=== PATIENT | male | born 1960 | race Caucasian/White ===

== ENCOUNTER 2019-01-22 13:34 | Inpatient (IN) | payer OTHER ==
--- NOTE | 2019-01-22 16:27 | HP ---
CIWA Score - Admission Criteria [facility] Guidelines: Admission for Medically Managed Detox: Requires at least one of the followin. CIWA greater than 12 2. Seizures within the past 24 hours 3. Delirium tremens within the past 24 hours 4. Hallucinations within the past 24 hours 5. Acute intervention needed for co occurring medical disorder 6. Acute intervention needed for co occurring psychiatric disorder 7. Severe withdrawal that cannot be handled at a lower level of care (continued vomiting, continued diarrhea, abnormal vital signs) requiring intravenous medication and/or fluids 8. Admission ROS S - HPI Chief Complaint: here for rehab from alcohol 58 yo with h/o TX, low EF and recent CHF, hospitalized at [facility] for 10 days for chest pain and CHF exacerbation. Pt was treated for alcohol withdrawal and for CHF. Pt has f/u with cardiology for ICD placement. Pt states has been using alcohol all his life. Pt was drinking 2 pints/day of alcohol. No h/o seizures or DT's. Pt is retired. Allergies/Adverse Reactions: Allergies Allergy/AdvReac Type Severity Reaction Status Date / Time Penicillins Allergy Verified 01/22/19 15:10 Exam Limitations: No Limitations - Ebola screening Have you traveled outside of the country in the last 21 days: No Have you had contact with anyone from an Ebola affected area: No Do you have a fever: No - Review of Systems Constitutional: No Symptoms Reported Patient History - Patient Medical History Hx Asthma: No Hx Chronic Obstructive Pulmonary Disease (COPD): No Hx Cardiac Disorders: Yes (CAD CHF) Hx Hypertension: Yes Hx Seizures: No Hx Diabetes: No Hx Gastrointestinal Disorders: No Hx Genitourinary Disorders: No Hx Sexually Transmitted Disorders: No Hx Renal Disease (ESRD): No Hx Depression: No Hx Suicide Attempt: No Hx Schizophrenia: No - Patient Surgical History Past Surgical History: No - PPD History Previous Implant?: Yes Documented Results: Negative w/o proof Implanted On Prior [facility] Admission?: No - Smoking Cessation Smoking history: Former smoker Have you smoked in the past 12 months: No Aproximately how many cigarettes per day: 10 If you are a former smoker, when did you quit?: 2016 Initiated information on smoking cessation: No 'Breaking Loose' booklet given: 01/22/19 - Substance & Tx. History Hx Alcohol Use: Yes Hx Substance Use: No Substance Use Type: Alcohol - Substances abused Alcohol Substance route: Oral Frequency: Daily Amount used: 2 pt. rum Age of first use: 17 Date of last use: 01/16/19 Family Disease History - Family Disease History Family Disease History: Heart Disease: Father, Sister, CA: Mother (breast Ca) Admission Physical Exam [facility] - Vital Signs Vital Signs: Vital Signs - 24 hr 01/22/19 15:12 Temperature 98.0 F Pulse Rate 90 Respiratory 18 Rate Blood Pressure 98/65 - Physical General Appearance: Yes: Within Normal Limits HEENTM: Yes: Within Normal Limits, EOMI, Normocephalic, Normal Voice, Other ( edentulous) Respiratory: Yes: Within Normal Limits, Lungs Clear Neck: Yes: Within Normal Limits Cardiology: Yes: Other (distant heart sounds, best heard at LSB, Pulse rate RRR) Abdominal: Yes: Within Normal Limits, Protuberent Back: Yes: Within Normal Limits Musculoskeletal: Yes: Within Normal Limits Extremities: Yes: Within Normal Limits Neurological: Yes: Within Normal Limits, pheresis nurse II-XII NML intact, Normal Mood/ Affect Integumentary: Yes: Within Normal Limits Lymphatic: Yes: Within Normal Limits - Diagnostic (1) Alcohol use disorder Current Visit: Yes Status: Acute (2) CHF (congestive heart failure) Current Visit: Yes Status: Acute (3) HTN (hypertension) Current Visit: Yes Status: Acute (4) CAD (coronary artery disease) Current Visit: Yes Status: Acute (5) High cholesterol Current Visit: Yes Status: Acute Breathalyzer - Breathalyzer Breathalyzer: 0 Urine Drug Screen - Test Device Lot number: [id number] Expiration date: 09/20/20 - Control Is test valid?: Yes - Results Drug screen NEGATIVE: No Urine drug screen results: BZO-Benzodiazepines Inpatient Rehab Admission - Rehab Decision to Admit Inpatient rehab admission?: Yes - Initial Determination Are CD services needed?: No Free of communicable disease: No Not in need of hospitalization: No - Rehab Admission Criteria Previous failed treatment: Yes Poor recovery environment: Yes Comorbidities: Yes Lacks judgement: No Patient is meeting Inpatient Rehab admission criteria:: Yes (pt has alcohol use disorder, h/o CHF)
[2019-01-22] MEDS ORDERED: LOPERAMIDE HCL 2 MG CAPSULE PO PRN (16:30)
[2019-01-22] MEDS ORDERED: MAGNESIUM HYDROX 2400MG/30ML ORAL SUSPENSION 30 ML CUP PO PRN (16:30)
[2019-01-22] MEDS ORDERED: MAG HYDROX/AL HYDROX/SIMETH 30 ML UNIT-DOSE CUP PO PRN (16:30)
[2019-01-22] MEDS ORDERED: guaiFENesin 200 MG/10 ML 10 ML UNIT-DOSE CUPS PO PRN (16:30)
[2019-01-22] MEDS ORDERED: MAGNESIUM CITRATE 300 ML BOTTLE PO PRN (16:30)
[2019-01-22] MEDS ORDERED: MENTHOL/PHENOL 1 EACH UD MM PRN (16:30)
[2019-01-22] MEDS ORDERED: P-EPHED 60MG/TRIPROLIDI 2.5MG TABLET PO PRN (16:30)
[2019-01-22] MEDS ORDERED: IBUPROFEN 400 MG TABLET (FP) PO PRN (16:30)
[2019-01-22] MEDS ORDERED: hydrOXYzine PAMOATE 25 MG CAPSULE (FP) PO PRN (16:30)
[2019-01-22] MEDS ORDERED: TUBERCULIN PPD 5 TU/0.1ML VIAL ID ONE (18:28)
[2019-01-22] MEDS: ATORVASTATIN CA 80 MG TABLET (FP) PO SCH (21:37)
[2019-01-22] MEDS: APIXABAN 5 MG TABLET PO SCH (21:37)
[2019-01-22] MEDS: THIAMINE HCL 100 MG TABLET (FP) PO SCH (21:37)
[2019-01-22] MEDS ORDERED: MELATONIN 5 MG TABLETS PO PRN (22:00)
[2019-01-23 00:44] LABS: URINE APPEARANCE CLEAR; URINE BILIRUBIN NEGATIVE (NEGATIVE); URINE COLOR YELLOW; URINE GLUCOSE (UA) NEGATIVE (NEGATIVE); URINE KETONE NEGATIVE (NEGATIVE); URINE LEUK ESTERASE NEGATIVE (NEGATIVE); URINE NITRITE NEGATIVE (NEGATIVE); URINE PROTEIN NEGATIVE (NEGATIVE); URINE UROBILINOGEN 0.2 mg/dL (0.2-1.0)
[2019-01-23] MEDS: FUROSEMIDE 40 MG TABLET (FP) PO SCH (10:20)
[2019-01-23] MEDS: APIXABAN 5 MG TABLET PO SCH ×2 (10:20→21:48)
[2019-01-23] MEDS: PRENATAL VITAMINS W/ FOLIC ACID TABLET (FP) PO SCH (10:20)
[2019-01-23] MEDS: ASPIRIN 81 MG CHEWABLE TABLETS PO SCH (10:20)
[2019-01-23] MEDS: LISINOPRIL 5 MG TABLET (FP) PO SCH (10:20)
[2019-01-23 10:24] LABS: HEMATOCRIT 39.3 % (35.4-49); HEMOGLOBIN 12.6 GM/dL (11.7-16.9); MCH 29.4 pg (25.7-33.7); MCHC 32.1 g/dl (32.0-35.9); MEAN CELL VOLUME 91.8 fl (80-96); MEAN PLT VOLUME 9.5 fl (7.5-11.1); PLATELET COUNT 204 K/MM3 (134-434); RBC 4.28 M/mm3 (4.00-5.60); WHITE BLOOD COUNT 4.4 K/mm3 (4.0-10.0)
[2019-01-23 10:44] LABS: ALBUMIN 3.8 g/dl (3.4-5.0); ALK PHOS 115 U/L (45-117); BILIRUBIN,TOTAL 0.2 mg/dL (0.2-1); BLOOD UREA NITROGEN 19 mg/dL (7-18); CHLORIDE 105 mmol/L (98-107); CO2 27 mmol/L (21-32); GLUCOSE,RANDOM 122 mg/dL (74-106); POTASSIUM 4.2 mmol/L (3.5-5.1); SGOT/AST 23 U/L (15-37); SGPT/ALT 42 U/L (13-61); SODIUM 141 mmol/L (136-145); TOT PROT 6.9 g/dl (6.4-8.2)
[2019-01-23 10:46] LABS: ANION GAP 8 MMOL/L (8-16)
[2019-01-23] MEDS: metoPROLOL SUCCINATE 25 MG TAB.SR.24H (FP) PO SCH (10:51)
--- NOTE | 2019-01-23 11:50 | EKG ---
Test Reason : Blood Pressure : / mmHG Vent. Rate : 083 BPM Atrial Rate : 083 BPM P-R Int : 178 ms QRS Dur : 104 ms QT Int : 410 ms P-R-T Axes : 048 -14 050 degrees QTc Int : 481 ms NORMAL SINUS RHYTHM CANNOT RULE OUT INFERIOR INFARCT , AGE UNDETERMINED ABNORMAL ECG NO PREVIOUS ECGS AVAILABLE Confirmed by CLOVER KENNEDY MD ([id number]) on 01/23/2019 11:49:51 AM Referred By: Confirmed By:CLOVER KENNEDY MD
[2019-01-23] MEDS: THIAMINE HCL 100 MG TABLET (FP) PO SCH (21:48)
[2019-01-23] MEDS: ATORVASTATIN CA 80 MG TABLET (FP) PO SCH (21:48)
[2019-01-24] MEDS: ASPIRIN 81 MG CHEWABLE TABLETS PO SCH (10:18)
[2019-01-24] MEDS: PRENATAL VITAMINS W/ FOLIC ACID TABLET (FP) PO SCH (10:18)
[2019-01-24] MEDS: APIXABAN 5 MG TABLET PO SCH ×2 (10:18→21:04)
[2019-01-24] MEDS: LISINOPRIL 5 MG TABLET (FP) PO SCH (10:48)
[2019-01-24] MEDS: metoPROLOL SUCCINATE 25 MG TAB.SR.24H (FP) PO SCH (10:48)
[2019-01-24] MEDS: FUROSEMIDE 40 MG TABLET (FP) PO SCH (10:48)
[2019-01-24] MEDS: ATORVASTATIN CA 80 MG TABLET (FP) PO SCH (21:04)
[2019-01-24] MEDS: THIAMINE HCL 100 MG TABLET (FP) PO SCH (21:04)
[2019-01-25] MEDS: ACETAMINOPHEN 325 MG TABLET (FP) PO PRN (04:35)
[2019-01-25] MEDS: LISINOPRIL 5 MG TABLET (FP) PO SCH (10:37)
[2019-01-25] MEDS: ASPIRIN 81 MG CHEWABLE TABLETS PO SCH (10:37)
[2019-01-25] MEDS: APIXABAN 5 MG TABLET PO SCH ×2 (10:37→21:48)
[2019-01-25] MEDS: FUROSEMIDE 40 MG TABLET (FP) PO SCH (10:37)
[2019-01-25] MEDS: PRENATAL VITAMINS W/ FOLIC ACID TABLET (FP) PO SCH (10:37)
[2019-01-25] MEDS: metoPROLOL SUCCINATE 25 MG TAB.SR.24H (FP) PO SCH (10:38)
[2019-01-25] MEDS: ERGOCALCIFEROL (VITAMIN D2) 50,000 UNIT CAPSULE (FP) PO SCH (10:38)
[2019-01-25] MEDS: ATORVASTATIN CA 80 MG TABLET (FP) PO SCH (21:48)
[2019-01-25] MEDS: THIAMINE HCL 100 MG TABLET (FP) PO SCH (21:48)
[2019-01-26] MEDS: ASPIRIN 81 MG CHEWABLE TABLETS PO SCH (10:43)
[2019-01-26] MEDS: PRENATAL VITAMINS W/ FOLIC ACID TABLET (FP) PO SCH (10:43)
[2019-01-26] MEDS: metoPROLOL SUCCINATE 25 MG TAB.SR.24H (FP) PO SCH (10:44)
[2019-01-26] MEDS: FUROSEMIDE 40 MG TABLET (FP) PO SCH (10:44)
[2019-01-26] MEDS: LISINOPRIL 5 MG TABLET (FP) PO SCH (10:44)
[2019-01-26] MEDS: APIXABAN 5 MG TABLET PO SCH ×2 (11:00→21:35)
[2019-01-26] MEDS: ACETAMINOPHEN 325 MG TABLET (FP) PO PRN ×2 (11:13→21:35)
[2019-01-26] MEDS: ATORVASTATIN CA 80 MG TABLET (FP) PO SCH (21:34)
[2019-01-26] MEDS: THIAMINE HCL 100 MG TABLET (FP) PO SCH (21:35)
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
[2019-01-26] MEDS: BACITRACIN 0.9 GM PACKET TP SCH (22:01)
[2019-01-27] MEDS: ACETAMINOPHEN 325 MG TABLET (FP) PO PRN (08:33)
[2019-01-27] MEDS: ASPIRIN 81 MG CHEWABLE TABLETS PO SCH (11:00)
[2019-01-27] MEDS: LISINOPRIL 5 MG TABLET (FP) PO SCH (11:00)
[2019-01-27] MEDS: APIXABAN 5 MG TABLET PO SCH ×2 (11:00→21:49)
[2019-01-27] MEDS: FUROSEMIDE 40 MG TABLET (FP) PO SCH (11:00)
[2019-01-27] MEDS: BACITRACIN 0.9 GM PACKET TP SCH (11:00)
[2019-01-27] MEDS: PRENATAL VITAMINS W/ FOLIC ACID TABLET (FP) PO SCH (11:00)
[2019-01-27] MEDS: metoPROLOL SUCCINATE 25 MG TAB.SR.24H (FP) PO SCH (11:02)
[2019-01-27] MEDS: THIAMINE HCL 100 MG TABLET (FP) PO SCH (21:49)
[2019-01-27] MEDS: ATORVASTATIN CA 80 MG TABLET (FP) PO SCH (21:49)
[2019-01-28] MEDS: APIXABAN 5 MG TABLET PO SCH ×2 (10:30→21:42)
[2019-01-28] MEDS: PRENATAL VITAMINS W/ FOLIC ACID TABLET (FP) PO SCH (10:30)
[2019-01-28] MEDS: LISINOPRIL 5 MG TABLET (FP) PO SCH (10:30)
[2019-01-28] MEDS: BACITRACIN 0.9 GM PACKET TP SCH (10:31)
[2019-01-28] MEDS: FUROSEMIDE 40 MG TABLET (FP) PO SCH (10:31)
[2019-01-28] MEDS: ASPIRIN 81 MG CHEWABLE TABLETS PO SCH (10:31)
[2019-01-28] MEDS: metoPROLOL SUCCINATE 25 MG TAB.SR.24H (FP) PO SCH (10:31)
[2019-01-28] MEDS: ATORVASTATIN CA 80 MG TABLET (FP) PO SCH (21:42)
[2019-01-28] MEDS: THIAMINE HCL 100 MG TABLET (FP) PO SCH (21:42)
[2019-01-29] MEDS: ASPIRIN 81 MG CHEWABLE TABLETS PO SCH (10:42)
[2019-01-29] MEDS: PRENATAL VITAMINS W/ FOLIC ACID TABLET (FP) PO SCH (10:43)
[2019-01-29] MEDS: metoPROLOL SUCCINATE 25 MG TAB.SR.24H (FP) PO SCH (10:43)
[2019-01-29] MEDS: LISINOPRIL 5 MG TABLET (FP) PO SCH (10:43)
[2019-01-29] MEDS: BACITRACIN 0.9 GM PACKET TP SCH (10:43)
[2019-01-29] MEDS: FUROSEMIDE 40 MG TABLET (FP) PO SCH (10:43)
[2019-01-29] MEDS: APIXABAN 5 MG TABLET PO SCH ×2 (10:43→21:12)
[2019-01-29] MEDS: ATORVASTATIN CA 80 MG TABLET (FP) PO SCH (21:12)
[2019-01-29] MEDS: THIAMINE HCL 100 MG TABLET (FP) PO SCH (21:12)
[2019-01-30] MEDS: metoPROLOL SUCCINATE 25 MG TAB.SR.24H (FP) PO SCH (10:09)
[2019-01-30] MEDS: APIXABAN 5 MG TABLET PO SCH ×2 (10:09→21:45)
[2019-01-30] MEDS: PRENATAL VITAMINS W/ FOLIC ACID TABLET (FP) PO SCH (10:09)
[2019-01-30] MEDS: ASPIRIN 81 MG CHEWABLE TABLETS PO SCH (10:09)
[2019-01-30] MEDS: FUROSEMIDE 40 MG TABLET (FP) PO SCH (10:09)
[2019-01-30] MEDS: LISINOPRIL 5 MG TABLET (FP) PO SCH (10:09)
[2019-01-30] MEDS: THIAMINE HCL 100 MG TABLET (FP) PO SCH (21:45)
[2019-01-30] MEDS: ATORVASTATIN CA 80 MG TABLET (FP) PO SCH (21:45)
[2019-01-31] MEDS: metoPROLOL SUCCINATE 25 MG TAB.SR.24H (FP) PO SCH (11:07)
[2019-01-31] MEDS: FUROSEMIDE 40 MG TABLET (FP) PO SCH (11:07)
[2019-01-31] MEDS: ASPIRIN 81 MG CHEWABLE TABLETS PO SCH (11:07)
[2019-01-31] MEDS: LISINOPRIL 5 MG TABLET (FP) PO SCH (11:07)
[2019-01-31] MEDS: APIXABAN 5 MG TABLET PO SCH ×2 (11:07→21:50)
[2019-01-31] MEDS: PRENATAL VITAMINS W/ FOLIC ACID TABLET (FP) PO SCH (11:07)
[2019-01-31] MEDS: THIAMINE HCL 100 MG TABLET (FP) PO SCH (21:50)
[2019-01-31] MEDS: ATORVASTATIN CA 80 MG TABLET (FP) PO SCH (21:50)
[2019-02-01] MEDS: PRENATAL VITAMINS W/ FOLIC ACID TABLET (FP) PO SCH (10:20)
[2019-02-01] MEDS: metoPROLOL SUCCINATE 25 MG TAB.SR.24H (FP) PO SCH (10:20)
[2019-02-01] MEDS: ERGOCALCIFEROL (VITAMIN D2) 50,000 UNIT CAPSULE (FP) PO SCH (10:20)
[2019-02-01] MEDS: FUROSEMIDE 40 MG TABLET (FP) PO SCH (10:20)
[2019-02-01] MEDS: APIXABAN 5 MG TABLET PO SCH ×2 (10:20→21:46)
[2019-02-01] MEDS: ASPIRIN 81 MG CHEWABLE TABLETS PO SCH (10:20)
[2019-02-01] MEDS: LISINOPRIL 5 MG TABLET (FP) PO SCH (10:20)
[2019-02-01] MEDS: THIAMINE HCL 100 MG TABLET (FP) PO SCH (21:46)
[2019-02-01] MEDS: ATORVASTATIN CA 80 MG TABLET (FP) PO SCH (21:46)
[2019-02-02] MEDS: ASPIRIN 81 MG CHEWABLE TABLETS PO SCH (10:41)
[2019-02-02] MEDS: FUROSEMIDE 40 MG TABLET (FP) PO SCH (10:41)
[2019-02-02] MEDS: PRENATAL VITAMINS W/ FOLIC ACID TABLET (FP) PO SCH (10:41)
[2019-02-02] MEDS: LISINOPRIL 5 MG TABLET (FP) PO SCH (10:41)
[2019-02-02] MEDS: metoPROLOL SUCCINATE 25 MG TAB.SR.24H (FP) PO SCH (10:41)
[2019-02-02] MEDS: APIXABAN 5 MG TABLET PO SCH ×2 (10:41→21:39)
[2019-02-02] MEDS: ATORVASTATIN CA 80 MG TABLET (FP) PO SCH (21:39)
[2019-02-02] MEDS: THIAMINE HCL 100 MG TABLET (FP) PO SCH (21:39)
[2019-02-03] MEDS: ASPIRIN 81 MG CHEWABLE TABLETS PO SCH (10:26)
[2019-02-03] MEDS: metoPROLOL SUCCINATE 25 MG TAB.SR.24H (FP) PO SCH (10:26)
[2019-02-03] MEDS: LISINOPRIL 5 MG TABLET (FP) PO SCH (10:26)
[2019-02-03] MEDS: FUROSEMIDE 40 MG TABLET (FP) PO SCH (10:26)
[2019-02-03] MEDS: PRENATAL VITAMINS W/ FOLIC ACID TABLET (FP) PO SCH (10:26)
[2019-02-03] MEDS: APIXABAN 5 MG TABLET PO SCH ×2 (10:28→22:07)
[2019-02-03] MEDS: ATORVASTATIN CA 80 MG TABLET (FP) PO SCH (22:07)
[2019-02-03] MEDS: THIAMINE HCL 100 MG TABLET (FP) PO SCH (22:07)
[2019-02-04 07:06] VITALS: TEMP 97.8
--- NOTE | 2019-02-04 08:39 | PN ---
[facility] Progress Note Note: PT COMPLETED REHAB AND DISCHARGED TODAY. PT WAS REFERRED TO [facility] AT [address] [place] [address]. PT REPORTS HE HAS HIS PCP FOR MEDICAL CARE AT [place], [place]. PT REPORTS HE HAS TO RESCHEDULE A MISSED APPOINTMENT WHILE HE WAS IN REHAB AFTER HE LEAVES TODAY. PT IS AWARE HE HAS HIS MEDICATIONS BY HIS PCP WAITING TO BE PICKED UP AT [facility]. ALERT O X 3. DENIES S/H/I. Home Medications Medication Instructions Recorded Apixaban [Eliquis] 5 mg PO BID 01/22/19 Aspirin 81 mg PO DAILY 01/22/19 Atorvastatin Ca [Lipitor] 80 mg PO HS 01/22/19 Ergocalciferol (Vitamin D2) 50,000 unit PO WEEKLY 01/22/19 [Vitamin D2] Furosemide [Lasix] 40 mg PO DAILY 01/22/19 Lisinopril 5 mg PO DAILY 01/22/19 Metoprolol Succinate 25 mg PO DAILY 01/22/19 Vital Signs - 24 hr 02/03/19 02/04/19 02/04/19 10:00 00:30 03:30 Temperature Pulse Rate 68 Respiratory 18 18 Rate Blood Pressure 114/63 02/04/19 07:05 Temperature 97.8 F Pulse Rate 86 Respiratory 18 Rate Blood Pressure 129/77 Laboratory Tests 01/22/19 01/23/19 01/23/19 22:54 08:05 08:05 WBC 4.4 RBC 4.28 Hgb 12.6 Hct 39.3 MCV 91.8 MCH 29.4 MCHC 32.1 RDW 19.0 H Plt Count 204 MPV 9.5 Sodium 141 Potassium 4.2 Chloride 105 Carbon Dioxide 27 Anion Gap 8 BUN 19 H Creatinine 1.0 Creat Clearance w eGFR 77.30 Random Glucose 122 H Calcium 9.0 Total Bilirubin 0.2 AST 23 ALT 42 Alkaline Phosphatase 115 Total Protein 6.9 Albumin 3.8 Urine Color Yellow Urine Appearance Clear Urine pH 5.0 Ur Specific [place] 1.007 L Urine Protein Negative Urine Glucose (UA) Negative Urine Ketones Negative Urine Blood Negative Urine Nitrite Negative Urine Bilirubin Negative Urine Urobilinogen 0.2 Ur Leukocyte Esterase Negative RPR Titer 01/23/19 08:05 WBC RBC Hgb Hct MCV MCH MCHC RDW Plt Count MPV Sodium Potassium Chloride Carbon Dioxide Anion Gap BUN Creatinine Creat Clearance w eGFR Random Glucose Calcium Total Bilirubin AST ALT Alkaline Phosphatase Total Protein Albumin Urine Color Urine Appearance Urine pH Ur Specific [place] Urine Protein Urine Glucose (UA) Urine Ketones Urine Blood Urine Nitrite Urine Bilirubin Urine Urobilinogen Ur Leukocyte Esterase RPR Titer Nonreactive NAD MEDICALLY STABLE PLAN;D/C TODAY. FOLLOW UP WITH CD RECOMMENDATION PLANNED. FOLLOW UP WITH PCP AND RESCHEDULE APPOINTMENT TODAY AFTER DISCHARGE.
[2019-02-04] MEDS: APIXABAN 5 MG TABLET PO SCH (09:03)
[2019-02-04] MEDS: metoPROLOL SUCCINATE 25 MG TAB.SR.24H (FP) PO SCH (09:03)
[2019-02-04] MEDS: ASPIRIN 81 MG CHEWABLE TABLETS PO SCH (09:03)
[2019-02-04] MEDS: PRENATAL VITAMINS W/ FOLIC ACID TABLET (FP) PO SCH (09:03)
[2019-02-04] MEDS: LISINOPRIL 5 MG TABLET (FP) PO SCH (09:03)
[2019-02-04] MEDS: FUROSEMIDE 40 MG TABLET (FP) PO SCH (09:03)
[2019-02-04 10:49] VITALS: BP 121/71; PULSE 90
== END 2019-02-04 10:05 | disposition home or self-care (01) | DRG 895 ==
LOC: YASAS 13:34 → Y5N 16:54
PROVIDERS: ADMIT Neuromusculoskeletal Medicine & OMM; ATTEND Neuromusculoskeletal Medicine & OMM
PROC: HZ42ZZZ Group Counseling for Substance Abuse Treatment, Cognitive-Behavioral (ICD-10-PCS; principal; 2019-01-22)
DX: F10.20 Alcohol dependence, uncomplicated (principal); I11.0 Hypertensive heart disease with heart failure; I50.9 Heart failure, unspecified; I25.10 Atherosclerotic heart disease of native coronary artery without angina pectoris; I25.2 Old myocardial infarction; E78.00 Pure hypercholesterolemia, unspecified; Z88.0 Allergy status to penicillin; Z87.891 Personal history of nicotine dependence
CPT/HCPCS: 36415; 80053; 81003; 85027; 86593; 93005; 93010